=== PATIENT | male | born 1980 | race Caucasian/White ===

== ENCOUNTER 2022-08-11 18:19 | Outpatient (CLI) | payer BC, SELFPAY ==
--- OUTSIDE RECORDS SUMMARY | 2022-08-11 18:22 | XMS_ITS | Encounter Summary ---
:1980 Author Organization [facility] Address [address] [place] [id number] Care Team Providers Name Role Phone No Ref-Primary, Physician Primary Care Provider [phone] Encounter Details Date Type Department Care Team Description 05/22/2020 Travel Social History Tobacco Use Types Packs/Day Years Used Date Smoking Tobacco: Never Assessed Sex Assigned at Date Recorded Not on file COVID-19 Exposure Response Date Recorded In the last month, have you been in contact with No / Unsure 05/22/2020 10:53 AM CDT someone who was confirmed or suspected to have Coronavirus / COVID-19? documented as of this encounter Plan of Treatment Not on filedocumented as of this encounter Visit Diagnoses Not on filedocumented in this encounter Care Teams Open Winder Relationship Specialty Start Date End Date No Ref-Primary, Physician PCP - General 05/22/20 documented as of this encounter
--- OUTSIDE RECORDS SUMMARY | 2022-08-11 18:22 | XMS_ITS | Clinical Summary ---
:1980 Author Organization [facility] [place] [address] Care Team Providers Name Role Phone Clinic, No Pcp Or Primary Care Provider Unavailable Allergies No known active allergies Medications No known medications Active Problems Problem Noted Date Family history of prostate cancer 02/22/2021 Overview: Dad developed Prostate Cancer at about a ge 55. Will start PSAs for Jeramy at age 45. 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 Does n't feel like it has popped i n forever./Has been going on f or a while. Was on antibiot ics a few months ago and doesn't feel like it resolve d.) 06/23/2022 Travel from Last 3 Months Immunizations Name Administration Dates Next Due COVID-19 vaccine (Basilio-J&J) KAY STARR 02/22/2021 HIB PRP-T (ActHIB,Hiberix) 05/16/1993 Influenza, IIV3 (Age >=3 years) 06/28/2018, 07/19/2012, 05/29 Influenza, IIV4 08/09/2019, 05/24/2018 Tdap 05/22/2020, 01/02/2011 Family History Medical History Relation Name Comments Cancer-prostate Father Hypertension Father Cancer Mother Ovarian CA Heart Disease Paternal Grandfather Relation Name Status Comments Father Alive Mother Alive Paternal Grandfather Social History Tobacco Use Types Packs/Day Years Used Date Light Tobacco Smoker Cigarettes 0.5 17 Smokeless Tobacco: Former User Q uit: 09/28/1999 Tobacco Cessation: Counseling Given: Yes Alcohol Use Standard Drinks/Week Comments No 0 (1 standard drink = 0.6 oz pure alcoho l) Sex Assigned at Date Recorded Not on file Obstetrics History Last Filed Vital Signs Vital Sign Reading Time Taken Comments Blood Pressure 122/78 06/23/2022 2:56 PM CDT Pulse 85 06/23/2022 2:56 PM CDT Temperature 36.5 ??C (97.7 ??F) 06/23/2022 2:56 PM CDT Respiratory Rate 18 01/14/2021 3:13 PM CDT Oxygen Saturation 96% 06/23/2022 2:56 PM CDT Inhaled Oxygen Concentration - - Weight 101.9 kg (224 lb 9.6 oz) 06/23/2022 2:56 PM CDT Height 180.3 cm (5' 11) 01/13/2022 9:18 AM CDT Body Mass Index 31.33 01/13/2022 9:18 AM CDT Plan of Treatment Upcoming Encounters Date Type Specialty Care Team Description 08/15/2022 Office Visit La Yee DO [address] [place], [place] [address] (Wo rk) Health Maintenance Due Date Last Done Comments Pneumococcal series for age 19-64 1985 (1 - PCV) COVID-19 vaccine series (2 - 04/19/2021 02/22/2021 Booster for Basilio series) Influenza for age 9-49 05/29/2022 08/09/2019, 06/28/2018, 05/24/2018, Additional history exists BMI (ht and wt on same day) for 01/13/2023 01/13/2022, 03/11/2021, age 18+ 07/30/2021, Additional history exists Depression screening for age 12+ 03/21/2023 03/21/2022, , 05/21/2020, Additional history exists Lipids for age 35-44 02/22/2026 02/22/2021, 12/25/2016, 11/20/2014, Additional history exists Tetanus booster 05/22/2030 05/22/2020, 01/02/2011 Tdap Completed 05/22/2020, 01/02/2011 Hepatitis C screening for age Completed 01/03/2021, 2010 18-79 Results Not on filefrom Last 3 Months Insurance Payer Benefit Plan / Subscriber ID Effective Dates Phone Addre ss Type Group WC WORKERS WC ARMSTRONG [id number] 2020-Prese [address] [place] [address] BLUE CROSS BLUE CROSS OF [id number] 2020-Presen [address] [address] [place] [address] BLUE CROSS [place] BLUE ADVANTAGE [id number] 2020-Presen [address] [address] [place] [address] Jerry Vitale Workers Comp Self 1980 [address] [place] [address] Jerry Vitale Workers Comp Self 1980 [address] [place] [address] Jerry Vitale Workers Comp Self 1980 [address] [place] [address] [employer] [facility] Employer [phone] [id number] [facility] (Home) [place] [facility] [id number] [employer] [facility] Employer 09/28/2000 ATTN [employer] (Home) PAYABLE [phone] [address] (Work) [place] [address] Care Teams Used Car Lot Porter Relationship Specialty Start Date End Date Clinic, No Pcp Or PCP - General 10/26/18 .
--- OUTSIDE RECORDS SUMMARY | 2022-08-11 18:22 | XMS_ITS | Clinical Summary ---
:1980 Author Organization [facility] Address [address] [place] [address] Care Team Providers Name Role Phone No Ref-Primary, Physician Primary Care Provider Allergies No known active allergies Immunizations Name Administration Dates Next Due TDAP Vaccine (Adacel) 05/22/2020 Social History Tobacco Use Types Packs/Day Years Used Date Smoking Tobacco: Never Assessed Sex Assigned at Date Recorded Not on file Last Filed Vital Signs Vital Sign Reading Time Taken Comments Blood Pressure 165/98 05/22/2020 11:23 AM CDT Pulse 82 05/22/2020 11:23 AM CDT Temperature 36.8 ??C (98.3 ??F) 05/22/2020 10:55 AM CDT Respiratory Rate 16 05/22/2020 11:54 AM CDT Oxygen Saturation 96% 05/22/2020 10:55 AM CDT Inhaled Oxygen Concentration - - Weight 99.8 kg (220 lb) 05/22/2020 10:55 AM CDT Height 177.8 cm (5' 10) 05/22/2020 10:55 AM CDT Body Mass Index 31.57 05/22/2020 10:55 AM CDT Plan of Treatment Health Maintenance Due Date Last Done Comments ADVANCE CARE PLANNING 1980 ANNUAL REVIEW OF HM ORDERS 1980 HEPATITIS B IMMUNIZATION (1 1980 of 3 - 3-dose series) YEARLY PREVENTIVE VISIT 1980 COVID-19 Vaccine (#1) 03/27/1980 HIV SCREENING 1994 HEPATITIS C SCREENING 1997 LIPID 2014 PHQ-2 (once per calendar 09/28/2021 year) INFLUENZA VACCINE (#1) 2022 08/09/2019, 06/28/2018, 05/24/2018, Additional history exists DTAP/TDAP/TD IMMUNIZATION 05/22/2030 05/22/2020 (2 - Td or Tdap) IPV IMMUNIZATION Aged Out No longer eligi ble based on patient 's age to complete this topic MENINGITIS IMMUNIZATION Aged Out No longe r eligible based on patient 's age to complete this topic Pneumococcal Vaccine: Aged Out No longer eligible Pediatrics (0 to 5 Years) based on patient's age and At-Risk Patients (6 to to co mplete this topic 64 Years) Insurance Payer Benefit Plan / Subscriber ID Effective Dates Phone Addre ss Type Group WORK COMP WC TRAVELERS [id number] 2020-Presen [address] [place] [address] BLUE PLUS BLUE PLUS [id number] 2020-Present [phone] [address] [address] [address] [place] [address] Jerry Vitale Worker's Self 1980 [phone] [place] [address] Care Teams Laborer Landscape Relationship Specialty Start Date End Date No Ref-Primary, Physician PCP - General 05/22/20
--- OUTSIDE RECORDS SUMMARY | 2022-08-11 18:22 | XMS_ITS | Encounter Summary ---
:1980 Author Organization [facility] Address [address] [place] [address] Care Team Providers Name Role Phone No Ref-Primary, Physician Primary Care Provider Reason for Visit Reason Comments Hand Injury Encounter Details Date Type Department Care Team Description 05/22/2020 Emergency [facility] Power Coulter Laceration of right [place] Emergency [facility] Dash PA-C index finger without [address] [facility] foreign body without [place] damage to nail, [id number] initial encounter [phone] [address] [place], [place] [address] (Wo rk) Social History Tobacco Use Types Packs/Day Years Used Date Smoking Tobacco: Never Assessed Sex Assigned at Date Recorded Not on file COVID-19 Exposure Response Date Recorded In the last month, have you been in contact with No / Unsure 05/22/2020 10:53 AM CDT someone who was confirmed or suspected to have Coronavirus / COVID-19? documented as of this encounter Last Filed Vital Signs Vital Sign Reading [...] Mass Index 31.57 05/22/2020 10:55 AM CDT documented in this encounter Discharge Instructions Discharge InstructionsPower Aparicio PA-C - 05/22/2020 11:46 AM CDT Discharge Instructions Laceration (Cut) You were seen today for a laceration (cut). Your provider examined your laceration for any problems such a buried foreign body (like glass, a splinter, or gravel), or injury to blood vessels, tendons, and nerves. Your provider may have also rinsed and/or scrubbed your laceration to help prevent an infection. It may not be possible to find all problems with your laceration on the first visit; occasionally foreign bodies or a tendon injury can go undetected. Your laceration may have been closed in one of several ways: No closure: many wounds will heal just fine without closure. Stitches: regular stitches that require removal. [place]: skin checo are often used in the scalp/head. Wound adhesive (glue): skin glue can be used for certain lacerations and doesn???t require removal. Wound strips (aka Butterfly bandages or steri-strips): these are bandages that help to close a wound. Absorbable stitches: ???dissolving?? stitches that go away on their own and usually don???t requireremoval. A small percentage of wounds will develop an infection regardless of how well the wound is cared for. Antibiotics are generally not indicated to prevent an infection so are only given for a small number of high-risk wounds. Some lacerations are too high risk to close, and are left open to heal becauseclosure can increase the likelihood that an infection will develop. Remember that all lacerations, no matter how expertly repaired, will cause scarring. We consider many factors, techniques, and materials, in our efforts to provide the best possible cosmetic outcome. Generally, every Emergency Department visit should have a follow-up clinic visit with either a primary or a specialty clinic/provider. Please follow-up as instructed by your emergency provider today. Return to the Emergency Department right away if: You have more redness, swelling, pain, drainage (pus), a bad smell, or red streaking from your laceration as these symptoms could indicate an infection. You have a fever of 100.4??F or more. You have bleeding that you cannot stop at home. If your cut starts to bleed, hold pressure on the bleeding area with a clean cloth or put pressure over the bandage. If the bleeding does not stop after using constant pressure for 30 minutes, you should return to the Emergency Department for further treatment. An area past the laceration is cool, pale, or blue compared with the other side, or has a slower return of color when squeezed. Your dressing seems too tight or starts to get uncomfortable or painful. For children, signs of a problem might be irritability or restlessness. You have loss of normal function or use of an area, such as being unable to straighten or bend a finger normally. You have a numb area past the laceration. Return to the Emergency Department or see your regular provider if: The laceration starts to come open. You have something coming out of the cut or a feeling that there is something in the laceration. Your wound will not heal, or keeps breaking open. There can always be glass, wood, dirt or other things in any wound. They will not always show up, even on x-rays. If a wound does not heal, this may bewhy, and it is important to follow- up with your regular provider. Home Care: Take your dressing off in 12-24 hours, or as instructed by your provider, to check your laceration. Remove the dressing sooner if it seems too tight or painful, or if it is getting numb, tingly, or pale past the dressing. Gently wash your laceration 1-2 times daily with clean water and mild soap. It is okay to shower or run clean water over the laceration, but do not let the laceration soak in water (no swimming). If your laceration was closed with wound adhesive or strips: pat it dry and leave it open to the air. For all other repairs: after you wash your laceration, or at least 2 times a day, apply antibiotic ointment (such as Neosporin?? or Bacitracin??) to the laceration, then cover it with a Band-Aid?? or gauze. Keep the laceration clean. Wear gloves or other protective clothing if you are around dirt. Follow-up for removal: If your wound was closed with checo or regular stitches, they need to be removed according to the instructions and timeline specified by your provider today. If your wound was closed with absorbable (???dissolving?? ) sutures, they should fall out, dissolve,or not be visible in about one week. If they are still visible, then they should be removed according to the instructions and timeline specified by your provider today. Scars: To help minimize scarring: Wear sunscreen over the healed laceration when out in the sun. Massage the area regularly once healed. You may apply Vitamin E to the healed wound. Wait. Scars improve in appearance over months and years. If you were given a prescription for medicine here today, be sure to read all of the information (including the package insert) that comes with your prescription. This will include important information about the medicine, its side effects, and any warnings that you need to know about. The pharmacist who fills the prescription can provide more information and answer questions you may have about the medicine. If you have questions or concerns that the pharmacist cannot address, please call or return to the Emergency Department. Remember that you can always come back to the Emergency Department if you are not able to see your regular provider in the amount of time listed above, if you get any new symptoms, or if there is anything that worries you. documented in this encounter ED Notes Ruth Leiva RN - 05/22/2020 10:53 AM CDT Patient arrives to the ED with a 4-5 cm lac to the right hand. Patient was working a cutting machineat work when his hand was cut. Bleeding controlled. CMS intact. Power Aparicio PA-C - 05/22/2020 10:48 AM CDT History Chief Complaint: Hand Injury HPI Jerry Vitale is a 39 year old right handed male who presents with a hand injury. The patient reported that he was working on a jammed cutting machine at work at 1000 when he scraped his right pointer knuckle causing a laceration. He denied any pain or numbness. Of note, his Tetanus was last updated in 2010. Allergies: The patient has no known drug allergies. Medications: Muscle relaxer Past Medical History: The patient denies any significant past medical history. Past Surgical History: The patient does not have any pertinent past surgical history. Family History: No past pertinent family history. Social History: Smoking Status: Not on file Alcohol use: Not on file Drug use: Not on file Review of Systems Skin: Positive for wound. All other systems reviewed and are negative. Physical Exam Patient Vitals for the past 24 hrs: BP Temp Temp src Pulse Resp SpO2 Height Weight 05/22/20 1154 -- -- -- -- 16 -- -- -- 05/22/20 1123 (!) 165/98 -- -- 82 -- -- -- -- 05/22/20 1055 (!) 172/96 98.3 ??F (36.8 ??C) Oral 91 18 96 % 1.778 m (5' 10) 99.8 kg (220 lb) Physical Exam General: Alert and oriented. Head: Normocephalic. External ears and nose normal. Eyes: Pupils equal and round. Normal tracking. Pulmonary/Chest: Effort and rate normal MSK: Full ROM in MCP, PIP, DIP joints. SKIN: 3 cm laceration over the dorsal right Hand and proximal index finger. Warm and dry with strongradial pulse and normal capillary refill. NEURO: Normal strength of flexion and extension at MCP, PIP, and DIP joints. Normal sensation through the radial/ulnar/median nerve distributions. PSYCH: Normal affect Emergency Department Course Imaging: Radiographic findings were communicated with the patient who voiced understanding of the findings. XR Hand 3 views, Right: Unremarkable exam, as per radiology. Procedures: Laceration Repair LACERATION: A simple and superficial clean 3 cm laceration. LOCATION: Dorsal right hand second finger FUNCTION: Distally sensation, circulation, motor and tendon function are intact. ANESTHESIA: Local using lidocaine 1% with epinephine total of 1.5 mLs PREPARATION: Irrigation and Scrubbing with Normal Saline and Shur Clens DEBRIDEMENT: no debridement CLOSURE: Wound was closed with One Layer. Skin closed with 6 x 4.0 Ethylon using interrupted sutures. Interventions: Medications lidocaine 1% with EPINEPHrine 1:100,000 1 %-1:[id number] injection (has no administration in time range) Tdap (bmxpnzw-eslrgfqwrr-wlyhg pertussis) (ADACEL) injection 0.5 mL (0.5 mLs Intramuscular Given 05/22/20 1119) 1119 Adacel 0.5 ml IM Emergency Department Course: Nursing notes and vitals reviewed. (1114) I performed an exam of the patient as documented above. IV inserted. Medicine administered as documented above. Blood drawn. This was sent to the lab for further testing, results above. The patient was sent for a hand XR while in the emergency department, findings above. (1139) I rechecked the patient, discussed the results of his workup thus far, and performed the laceration repair as noted above. Findings and plan explained to the Patient. Patient discharged home with instructions regarding supportive care, medications, and reasons to return. The importance of close follow-up was reviewed. I personally reviewed the laboratory results with the Patient and answered all related questions prior to discharge. Impression & Plan Medical Decision Making: Jerry Vitale is a 39 year old male who presents with laceration to hand/finger. Patient historyand records reviewed. On examination, the patient has a laceration, but is otherwise well appearing.There is no evidence of neurovascular compromise, fracture, imbedded foreign body, or tendon injury. Wound was anesthetized, irrigated, explored, and closed as above with non- absorbale sutures. Tetanuschecked and updated. Discussed indications to return to ED if new or worsening symptoms, or signs ofinfection such as fever, swelling, spreading erythema, drainage, or increasing pain. Advised sun prot ection to reduce scarring. Follow-up with primary care provider in 8-10 days for suture removal. Diagnosis: ICD-10-CM 1. Laceration of right index finger without foreign body without damage to nail, initial encounter S61.210A Disposition: discharged to home Scribe Disclosure: IRachel, am serving as a scribe on 05/22/2020 at 11:14 AM to personally document services performed by Power Aparicio PAC based on my observations and the provider's statements to me. Rachel Plata 05/22/2020 [facility] Power Aparicio PA-C 05/22/20 1228 documented in this encounter Plan of Treatment Not on filedocumented as of this encounter Procedures Procedure Name Priority Date/Time Associated Diagnosis Comme nts XR FINGER RIGHT G/E STAT 05/22/2020 11:12 AM R esults for this 2 VIEWS CDT procedure are i n the results section. documented in this encounter Results XR Finger Right G/E 2 Views (05/22/2020 11:12 AM CDT) Anatomical Region Laterality Modality Hand, Right Hand Right Digital Radiography Specimen (Source) Anatomical Location Collection Method / Collectio n Time Received Time / Laterality Volume Impressions 05/22/2020 5:54 PM CDT IMPRESSION: Unremarkable exam. DIONICIO WILLINGHAM MD Narrative 05/22/2020 5:54 PM CDT RIGHT FINGER TWO OR MORE VIEWS ?? 05/22/2020 11:12 AM HISTORY: ??Injury, laceration. Procedure Note Dionicio Willingham MD - 05/22/2020Formatting o f this note might be different from the original. RIGHT FINGER TWO OR MORE VIEWS 05/22/2020 11:12 AM HISTORY: Injury, laceration. IMPRESSION: Unremarkable exam. DIONICIO WILLINGHAM MD [facility] documented in this encounter Visit Diagnoses Diagnosis Laceration of right index finger without foreign body without damage to nail, initial encounter documented in this encounter Active and Recently Administered Medications Care Teams Supply Analyst Relationship Specialty Start Date End Date No Ref-Primary, Physician PCP - General 05/22/20 documented as of this encounter
[2022-08-13 17:40] LABS: Rapid Plasma Reagin (RPR) Reactive (Non Reactive)
[2022-08-15 11:50] LABS: Treponema pallidum AbTP-PA Non Reactive (Non Reactive)
== END 2022-08-11 18:20 | disposition home or self-care (01) ==
LOC: NFLDREF 18:21
PROVIDERS: PCP Registered Nurse; Visit Provider Registered Nurse
DX: R79.89 Other specified abnormal findings of blood chemistry (principal); Z71.1 Person with feared health complaint in whom no diagnosis is made
CPT/HCPCS: 86592; 86593; 86780